=== PATIENT | female | born 1995 | race Caucasian/White ===

== ENCOUNTER → 2019-12-23 | Outpatient (CLI) | payer OTHER, SELFPAY ==
[2019-12-19 15:42] VITALS: BMI 24.1
[2019-12-23 11:12] LABS: Hematocrit 40.1 % (37-47); Hemoglobin 13.4 g/dL (12.0-15.0); Mean Corp Hgb Conc 33.4 g/dL (32-36); Mean Corpuscular Hgb 30.9 pg (27.0-32.0); Mean Corpuscular Volume 92.6 fL (81-99); Mean Platelet Vol. 10.7 fl (6.2-12.0); Platelet Count 337 K/mm3 (150-450); RBC Distribution Width SD 41.1 fl (35.1-43.9); Red Blood Count 4.33 M/mm3 (4.2-5.4)
[2019-12-23 11:38] LABS: Anion Gap 5 (5-15); BUN 8 mg/dL (7-18); BUN/Creat Ratio 10.6 RATIO (10-20); Calcium,Total 8.8 mg/dL (8.5-10.1); Chloride 105 mmol/L (98-107); Creatinine, Serum 0.75 mg/dL (0.55-1.02); EST Glomerular Filtration Rate 101 mL/min (>60); Est Glom Filt Rate - Afr Amer 122 mL/min (>60); Glucose 86 mg/dL (74-106); Magnesium 2.1 mg/dL (1.6-2.6); Potassium 4.2 mmol/L (3.5-5.1); Sodium Level 140 mmol/L (136-145); Thyroid Stim Hormone (TSH) 0.46 uIU/mL (0.358-3.74)
== END | disposition home or self-care (01) ==
LOC: LAB 10:29
PROVIDERS: PCP Pediatrics; Referring Provider Internal Medicine Cardiovascular Disease; Visit Provider Internal Medicine Cardiovascular Disease
DX: R00.0 Tachycardia, unspecified (principal); R00.2 Palpitations
CPT/HCPCS: 36415; 80048; 83735; 84443; 85027

== ENCOUNTER → 2019-12-31 | Outpatient (CLI) | payer OTHER, SELFPAY ==
[2019-12-19 15:42] VITALS: BMI 24.1
--- NOTE | 2019-12-31 12:44 | ECHOD_ITS ---
Reason For Study: ARRHYTHMIA Procedure This was a 2D Doppler, Color Flow transthoracic echocardiogram. Technically difficult to assess valves due to tachycardia. The study was technically difficult. Exam performed in department. Left Ventricle Normal LV size. Left ventricular systolic function is normal. The estimated ejection fraction is 65 %. No evidence for diastolic dysfunction. No regional wall motion abnormalities noted. Right Ventricle Normal RV size. Normal systolic function. Atria Normal left atrium. Normal right atrium. No doppler evidence for ASD. Mitral Valve There is no mitral annular calcification. Normal mitral valve. Trivial mitral valve insufficiency. Tricuspid Valve Normal tricuspid valve. Trivial tricuspid valve insufficiency. Unable to estimate RV systolic pressure/pulmonary artery pressure due to technically difficult study. Aortic Valve Trisinus/trileaflet aortic valve. Normal aortic valve. Pulmonic Valve The pulmonic valve is not well visualized. Great Vessels Normal sized aortic root. Pericardium/Pleural No pericardial effusion. MMode/2D Measurements & Calculations LVIDd: 3.5 cm IVSd: 0.80 cm Ao root diam: 2.7 cm LVIDs: 2.4 cm LVPWd: 0.78 cm RVDd: 2.5 cm FS: 31.3 % LAV(MOD-bp): 29.7 ml LVAd ap4: 25.7 cm2 SV(MOD-sp4): 45.1 ml LAV(MOD-bp) Indexed: 18.7 ml/m2 EDV(MOD-sp4): 73.2 ml LAV(MOD-sp2): 32.6 ml EDV(sp4-el): 75.7 ml LAV(MOD-sp4): 24.3 ml LVAs ap4: 13.5 cm2 ESV(MOD-sp4): 28.1 ml ESV(sp4-el): 27.9 ml EF(MOD-sp4): 61.6 % EF(sp4-el): 63.1 % SV(sp4-el): 47.8 ml LA A4 area: 11.2 cm2 LA dimension(2D): 2.9 cm RA A4 area: 10.0 cm2 Time Measurements MV dec time: 0.15 sec Doppler Measurements & Calculations MV E max lauro: 97.7 cm/sec Med Peak E' Lauro: 12.7 cm/sec Ao V2 max: 165.0 cm/sec MV A max lauro: 96.6 cm/sec E/E' med: 7.7 Ao max P.9 mmHg MV E/A: 1.0 LV V1 max: 146.2 cm/sec PA V2 max: 152.8 cm/sec LV V1 max P.6 mmHg Interpretation Summary The study was technically difficult. Left ventricular systolic function is normal. The estimated ejection fraction is 65 %. Trivial mitral valve insufficiency. Trivial tricuspid valve insufficiency. No evidence for diastolic dysfunction. Comment: Based upon the 2D echocardiographic and color-flow Doppler images obtained a small high perimembranous ventricular septal defect with a left to right shunt cannot necessarily be excluded. Ordering Physician: Rajiv Ho Referring Physician: HEMANTH CASTELLANOS Performed By: Dyesi Garcia, RDCS, RVT
== END | disposition home or self-care (01) ==
PROVIDERS: PCP Pediatrics; Referring Provider Internal Medicine Cardiovascular Disease; Visit Provider Internal Medicine Cardiovascular Disease
DX: R00.0 Tachycardia, unspecified (principal)
CPT/HCPCS: 93225; 93226; 93306

== ENCOUNTER → 2020-01-03 | Outpatient (CLI) | payer OTHER, SELFPAY ==
[2019-12-19 15:42] VITALS: BMI 24.1
== END | disposition home or self-care (01) ==
PROVIDERS: PCP Pediatrics; Referring Provider Internal Medicine Cardiovascular Disease; Visit Provider Internal Medicine Cardiovascular Disease
DX: R00.0 Tachycardia, unspecified (principal)
CPT/HCPCS: 93225; 93226

== ENCOUNTER 2021-03-29 11:16 | Emergency (ER) | payer OTHER, SELFPAY ==
[2021-03-29 11:17] VITALS: BP 153/88; PULSE 114; RESP 16; TEMP 36.8; O2SAT 98; BMI 26.3
[2021-03-29 11:28] VITALS: BP 166/78; PULSE 120; RESP 21
--- NOTE | 2021-03-29 12:07 | EDS_ITS ---
HPI History of Present Illness Chief Complaint: Palpitations Narrative Narrative: Patient presents with palpitations, shakiness, anxiety that all started within the last hour or 2 while she was sitting at her desk at work, spontaneously. No lightheadedness or syncope. No chest pain or shortness of breath. She states she has had the symptoms before, however 2 weeks ago she was started on Corlanor for her pots, and this started about 2 hours after she had taken the pill, which should help slow her heart rate down, and this is never happened before in this context. She has been checked for dysrhythmias multiple times and has never had 1. She follows with an EP ex assistant/program director at [facility], Dr. Malik Grimes. [facility] Medical History Inappropriate sinus tachycardia Palpitations POTS (postural orthostatic tachycardia syndrome) Sinus tachycardia Home Medications norethindrone 1 mg-ethinyl estradiol 20 mcg (21)-iron 75 mg (7) tablet 1 tab PO DAILY 12/16/19 [History Last Taken Unknown] ivabradine [Corlanor] 5 mg PO BID 03/29/21 [History Last Taken Unknown] Allergy/AdvReac Type Severity Reaction Status Date / Time erythromycin base Allergy Unknown Unknown Verified 03/29/21 11:20 Family History Grandfather Hypertension Father Mixed hyperlipidemia Grandmother Heart disease Surgical History History of left knee surgery Social History Smoking Status: Never smoker alcohol intake: never substance use type: does not use caffeine: Yes Type: tea Number of servings: 1 ROS ROS ED Constitutional Constitutional ED: Denies chills or fever(s) Eyes Eyes: Denies change in vision or diplopia ENT ENT ED: Denies rhinorrhea or sore throat Cardiovascular Cardiovascular: Reports palpitations and racing heartbeat; Denies chest pain Respiratory/Chest Respiratory/Chest: Denies cough or dyspnea Gastrointestinal Gastrointestinal: Denies abdominal pain, diarrhea, nausea or vomiting Genitourinary Genitourinary ED: Denies dysuria or hematuria Musculoskeletal Musculoskeletal: Denies back pain or neck pain Integumentary Denies abscess or rash Neurologic Neurologic: Denies headache(s), paresthesias or weakness Psychiatric Psychiatric: Reports anxiety; Denies suicidal thoughts EXAM Physical Exam Const Vital Signs: 03/29/21 11:17 03/29/21 11:28 03/29/21 13:38 Temperature 98.2 F Temperature Source Temporal Pulse Rate 114 H 120 H 99 Respiratory Rate 16 21 H 17 Respiratory Effort Normal Blood Pressure 153/88 H 166/78 H 125/70 H Blood Pressure Mean 109 107 88 Pulse Ox 98 Oxygen Delivery Method Room Air Room Air 03/29/21 14:37 Temperature Temperature Source Pulse Rate 98 Respiratory Rate Respiratory Effort Blood Pressure 117/75 Blood Pressure Mean Pulse Ox Oxygen Delivery Method Positive well nourished and well developed General Appearance ED: well developed and NAD HEENT Reports moist mucous membranes normocephalic and atraumatic Eyes PERRL and EOMs intact bilaterally Neck full ROM and supple Resp normal respiratory effort and clear to auscultation bilaterally Cardio regular rate, regular rhythm and no murmurs Rate: tachycardic GI non-tender and non-distended Auscultation: normoactive bowel sounds Palpation: soft Back/Spine no CVA tenderness General Back: other FROM Extremity normal to inspection General Extremety ED: Negative for edema, pulses abnormal or tenderness General Extremity: Negative for edema or pulses abnormal Neuro oriented x3, CN's II-XII intact bilaterally and no sensory deficits noted Sensorium / Orientation: awake and alert Motor Exam: strength 5/5 throughout Skin no rashes or lesions noted and no wounds MDM MDM MDM Narrative Medical decision making narrative: Patient was monitored, I spoke with Dr. Grimes her ex assistant/program director at [employer]. He does know the patient. He states on her event monitor prior to beginning the new medication ivabradine, her heart rate got as high as the 160s in sinus tachycardia and she does have a history of some anxiety. Given my description of the EKG, he would recommend continuing the ivabradine and would not recommend administering any rate controller medications at this time. On reexamination, heart rate came down to the 90s, and while I was talking her it went back up to the 110s gradually, in my opinion ruling out any acute dysrhythmia or atrial tachycardia. Lab Data Attestation: I reviewed the patient's lab results. Labs: Laboratory Results - last 24 hr 03/29/21 03/29/21 03/29/21 12:30 12:30 13:30 WBC Cancelled 8.8 Corrected WBC Cancelled RBC Cancelled 4.25 Hgb Cancelled 13.4 Hct Cancelled 38.6 MCV Cancelled 90.8 MCH Cancelled 31.5 MCHC Cancelled 34.7 RDW Std Deviation Cancelled 40.5 RDW Coeff of Alexa Cancelled 12.3 Plt Count Cancelled 341 MPV Cancelled 10.5 Immature Gran % (Auto) Cancelled 0.200 Neut % (Auto) Cancelled 78.0 H Lymph % (Auto) Cancelled 17.2 L [place] % (Auto) Cancelled 4.3 Eos % (Auto) Cancelled 0.1 Baso % (Auto) Cancelled 0.2 Absolute Neuts (auto) Cancelled 6.9 Absolute Lymphs (auto) Cancelled 1.52 Total Counted Cancelled Neutrophils % (Manual) Cancelled Band Neutrophils % Cancelled Lymphocytes % (Manual) Cancelled Monocytes % (Manual) Cancelled Eosinophils % (Manual) Cancelled Basophils % (Manual) Cancelled Metamyelocytes % Cancelled Myelocytes % Cancelled Promyelocytes % Cancelled Blast Cells % Cancelled Plasma Cell % (Manual) Cancelled Other Cells % Cancelled Nucleated RBC % Cancelled 0 Nucleated RBCs/100 WBC Cancelled Differential Comment Cancelled Diff Path Review Cancelled Hypersegmented Neuts Cancelled Atypical Lymphocytes Cancelled Reactive Lymphocytes Cancelled Smudge Cells Cancelled Toxic Granulation Cancelled Toxic Vacuolation Cancelled Dohle Bodies Cancelled Lenard Rods Cancelled Platelet Estimate Cancelled Plt Morphology Comment Cancelled RBC Morphology Cancelled Polychromasia Cancelled Hypochromasia Cancelled Poikilocytosis Cancelled Basophilic Stippling Cancelled Anisocytosis Cancelled Microcytosis Cancelled Macrocytosis Cancelled Spherocytes Cancelled Sickle Cells Cancelled Target Cells Cancelled Tear Drop Cells Cancelled Ovalocytes Cancelled Stomatocytes Cancelled Cross-Clarks Bodies Cancelled Irina Cells Cancelled Bite Cells Cancelled Crenated Cell Cancelled Acanthocytes (Spur) Cancelled Rouleaux Cancelled Schistocytes Cancelled Sodium 136 Potassium 4.4 Chloride 109 H Carbon Dioxide 22.0 Anion Gap 5 BUN 6 L Creatinine 0.73 Estim Creat Clear Calc 93.99 Est GFR (MDRD) Af Amer 126 Est GFR (MDRD) Non-Af 104 BUN/Creatinine Ratio 8.2 L Glucose 89 Calcium 9.3 EKG Initial EKG: Attestation: I personally reviewed and interpreted this EKG as follows: Interpretation: No Acute Injury Pattern and Sinus Tachycardia Comments: upright P waves inferiorly Discharge Plan Triage Chief Complaint: Palpitations ED Provider: Joseph Romano Dx/Rx/DC Orders Clinical Impression: Palpitations Instructions: ED Palpitations Prescriptions: No Action norethindrone-e.estradiol-iron [June FE 05/27 (28)] 1 mg-20 mcg (21)/75 mg (7) tablet 1 tab PO DAILY RF: 0 Corlanor 5 mg tablet 5 mg PO BID RF: 0 Primary Care Provider: Daniel Fowler NP Referrals: Dr. Cornelio [Other] - As Needed Daniel Fowler NP, [facility] [Primary Care Provider] - Disposition Disposition: Home, Self Care Discharge Date/Time: 03/29/21 14:40
--- NOTE | 2021-03-29 12:07 | EKG12_ITS ---
Test Reason : PALPS Blood Pressure : / mmHG Vent. Rate : 118 BPM Atrial Rate : 118 BPM P-R Int : 120 ms QRS Dur : 078 ms QT Int : 324 ms P-R-T Axes : 069 036 050 degrees QTc Int : 454 ms Sinus tachycardia Nonspecific [address] abnormality Abnormal ECG Confirmed by HANNAH KOCH, CHARI ([id number]), property caretaker RICHARD [place] ([id number]) on 04/02/2021 7:19:53 AM Referred By: JOSE JUAN/CHARLENE Confirmed By:CHARI YOUNG MD
--- NOTE | 2021-03-29 12:13 | NURSING ---
NO OLD EKG
[2021-03-29 12:52] LABS: Anion Gap 5 (5-15); BUN 6 mg/dL (7-18); BUN/Creat Ratio 8.2 RATIO (10-20); Calcium,Total 9.3 mg/dL (8.5-10.1); Chloride 109 mmol/L (98-107); Creatinine, Serum 0.73 mg/dL (0.55-1.02); EST Glomerular Filtration Rate 104 mL/min (>60); Est Glom Filt Rate - Afr Amer 126 mL/min (>60); Estimated Creatinine Clearance 93.99 ml/min; Glucose 89 mg/dL (74-106); Potassium 4.4 mmol/L (3.5-5.1); Sodium Level 136 mmol/L (136-145)
[2021-03-29 13:38] VITALS: BP 125/70; PULSE 99; RESP 17
[2021-03-29 13:39] LABS: Absolute Lymphocyte Count 1.52 X10^3/uL (0.83-4.51); Absolute Neutrophil Count 6.9 X10^3/uL (2.0-7.7); Basophil# 0.02 X10^3/uL; Basophil% 0.2 % (0-1); Eosinophil# 0.01 X10^3/uL; Eosinophils% 0.1 % (0-5); Hematocrit 38.6 % (37-47); Hemoglobin 13.4 g/dL (12.0-15.0); Lymphocyte # 1.52 X10^3/ul (0.83-4.51); Lymphocyte % 17.2 % (19-41); Mean Corp Hgb Conc 34.7 g/dL (32-36); Mean Corpuscular Hgb 31.5 pg (27.0-32.0); Mean Corpuscular Volume 90.8 fL (81-99); Mean Platelet Vol. 10.5 fl (6.2-12.0); Monocyte# 0.38 X10^3/uL; Monocyte% 4.3 % (0-10); NRBC Flagged by Analyzer 0 % (0-5); Neutrophil # 6.88 X10^3/uL (2.7-7.7); Platelet Count 341 K/mm3 (150-450); RBC Distribution Width CV 12.3 % (11.6-14.6); RBC Distribution Width SD 40.5 fl (35.1-43.9); Red Blood Count 4.25 M/mm3 (4.2-5.4); White Blood Count 8.8 K/mm3 (4.4-11.0)
[2021-03-29 14:37] VITALS: BP 117/75; PULSE 98
== END 2021-03-29 14:40 | disposition home or self-care (01) ==
PROVIDERS: Emergency Provider Emergency Medicine; PCP Nurse Practitioner Family
DX: R00.2 Palpitations (principal)
CPT/HCPCS: 36415; 80048; 85025; 93005; 99283; A4216